=== PATIENT | female | born 1975 | race Caucasian/White ===

== ENCOUNTER 2017-01-19 07:24 | Emergency (ER) | payer OTHER ==
[~2017-01-19] VITALS: Ht 172.7 cm; Wt 63.6 kg
[2017-01-19 07:26] VITALS: TEMP 97.6
[2017-01-19] MEDS ORDERED: ZOFRAN 4MG T4 MG/TAB PO (08:50)
[2017-01-19 08:58] VITALS: BP 144/89; PULSE 90
== END 2017-01-19 09:00 | disposition home or self-care (01) ==
LOC: COL.ER 07:24
DX: G43.909 Migraine, unspecified, not intractable, without status migrainosus (principal); F17.210 Nicotine dependence, cigarettes, uncomplicated
CPT/HCPCS: J1200; J1885; J2765; J7030